=== PATIENT | male | born 1955 | race Caucasian/White ===

== ENCOUNTER 2024-07-29 03:25 | Inpatient (IN) | payer BC, MEDICARE ==
[2024-07-29 04:47] VITALS: BMI 29.0
[2024-07-29] MEDS ORDERED: Ondansetron PF 4 MG/2 ML Vial IVP PRN (06:08)
[2024-07-29] MEDS ORDERED: Acetaminophen 325 MG TAB PO PRN (06:08)
[2024-07-29] MEDS ORDERED: Nitroglycerin 0.4 MG TAB (25 Tab Bottle) SL PRN (06:08)
[2024-07-29 06:48] LABS: #Basophils 0.04 10x3/uL (0.0-0.2); %Basophils 0.7 % (0.0-1.0); %Lymphocytes 40.4 % (21.0-51.0); %Monocytes 10.7 % (0.0-10.0); %Neutrophils 45.8 % (42.0-75.0); Hematocrit 39.9 % (42.0-52.0); Hemoglobin 13.1 g/dL (14.0-18.0); Mean Corpuscular HGB CONC 32.8 g/dL (32.0-36.0); Mean Corpuscular Hemoglobin 29.1 pg (27.0-31.0); Mean Corpuscular Volume 88.7 fL (78.0-98.0); Platelet Count 193 10x3/uL (130-400); RBC Distribution Width 13.2 % (11.5-14.5)
[2024-07-29 07:08] LABS: Anion Gap 14 mmol/L (10-20); BUN (Urea Nitrogen) 16 mg/dL (8.4-25.7); Calc. Creatinine Clearance 97 mL/min (70-130); Calcium 8.5 mg/dL (7.8-10.44); Carbon Dioxide 25 mmol/L (23-31); Chloride 106 mmol/L (98-107); Cholesterol 167 mg/dl (< 200 Desired); Estimated GFR 95; Glucose 93 mg/dL (80-115); HDL Cholesterol 28 mg/dL (>60 Neg Risk); LDL Cholesterol, Calculated 88 mg/dL; Potassium 3.8 mmol/L (3.5-5.1); Sodium 141 mmol/L (136-145); Triglycerides 257 mg/dL (Less than 150)
[2024-07-29 07:13] LABS: Troponin I Less than 0.010 ng/mL (< 0.028)
[2024-07-29] MEDS: hydrOXYzine 10 MG TAB PO SCH (09:36)
[2024-07-29] MEDS: Loratadine 10 MG TAB PO SCH (09:36)
[2024-07-29] MEDS: Pantoprazole DR 40 MG TAB PO SCH (09:36)
[2024-07-29] MEDS: Cyanocobalamin (Vitamin B-12) 1,000 MCG TAB PO SCH (09:36)
[2024-07-29] MEDS: Aspirin Chewable 81 MG TAB PO SCH (09:37)
[2024-07-29] MEDS: Hydrochlorothiazide 25 MG TAB PO SCH (09:37)
[2024-07-29] MEDS: Cholecalciferol 1,000 UNITS (25 MCG) TAB PO SCH (09:37)
[2024-07-29 11:05] LABS: Troponin I Less than 0.010 ng/mL (< 0.028)
[2024-07-29] MEDS: Atorvastatin Calcium 10 MG TAB PO SCH (20:56)
[2024-07-29] MEDS: Lisinopril 10 MG TAB PO SCH (20:56)
[2024-07-30 04:02] LABS: #Basophils 0.05 10x3/uL (0.0-0.2); %Basophils 0.9 % (0.0-1.0); %Eosinophils 1.9 % (0.0-10.0); %Monocytes 10.5 % (0.0-10.0); %Neutrophils 43.4 % (42.0-75.0); Hematocrit 41.5 % (42.0-52.0); Hemoglobin 13.6 g/dL (14.0-18.0); Mean Corpuscular HGB CONC 32.8 g/dL (32.0-36.0); Mean Corpuscular Hemoglobin 29.1 pg (27.0-31.0); Mean Corpuscular Volume 88.9 fL (78.0-98.0); Mean Platelet Volume 10.2 fL (7.4-10.4); Platelet Count 217 10x3/uL (130-400); RBC Distribution Width 13.4 % (11.5-14.5); Red Blood Cell (RBC) Count 4.67 mill/uL (4.70-6.10)
[2024-07-30 04:26] LABS: Anion Gap 14 mmol/L (10-20); BUN (Urea Nitrogen) 13 mg/dL (8.4-25.7); Calc. Creatinine Clearance 103 mL/min (70-130); Calcium 8.7 mg/dL (7.8-10.44); Carbon Dioxide 25 mmol/L (23-31); Chloride 105 mmol/L (98-107); Estimated GFR 97; Glucose 92 mg/dL (80-115); Potassium 3.5 mmol/L (3.5-5.1); Sodium 140 mmol/L (136-145)
[2024-07-30] MEDS ORDERED: Regadenoson 0.4 MG/5 ML SYRINGE ONE (08:52)
[2024-07-30] MEDS: Amlodipine 5 MG TAB PO SCH ×2 (19:13→19:32)
[2024-07-30] MEDS: Atorvastatin Calcium 20 MG TAB PO SCH (21:05)
[2024-07-30] MEDS: Lisinopril 10 MG TAB PO SCH (21:05)
[2024-07-31 04:37] LABS: #Basophils 0.04 10x3/uL (0.0-0.2); %Basophils 0.7 % (0.0-1.0); %Eosinophils 1.8 % (0.0-10.0); %Lymphocytes 41.5 % (21.0-51.0); %Monocytes 11.3 % (0.0-10.0); %Neutrophils 44.4 % (42.0-75.0); Hematocrit 40.3 % (42.0-52.0); Hemoglobin 13.5 g/dL (14.0-18.0); Mean Corpuscular HGB CONC 33.5 g/dL (32.0-36.0); Mean Corpuscular Hemoglobin 29.7 pg (27.0-31.0); Mean Corpuscular Volume 88.8 fL (78.0-98.0); Mean Platelet Volume 9.9 fL (7.4-10.4); Platelet Count 205 10x3/uL (130-400); RBC Distribution Width 13.1 % (11.5-14.5); Red Blood Cell (RBC) Count 4.54 mill/uL (4.70-6.10)
[2024-07-31 04:56] LABS: Anion Gap 12 mmol/L (10-20); BUN (Urea Nitrogen) 17 mg/dL (8.4-25.7); Calc. Creatinine Clearance 97 mL/min (70-130); Carbon Dioxide 24 mmol/L (23-31); Chloride 105 mmol/L (98-107); Estimated GFR 95; Glucose 123 mg/dL (80-115); Potassium 3.3 mmol/L (3.5-5.1); Sodium 138 mmol/L (136-145)
[2024-07-31] MEDS: Amlodipine 5 MG TAB PO SCH (09:42)
[2024-07-31] MEDS: Potassium Chloride 20 MEQ TAB PO SCH (09:43)
[2024-07-31 12:36] VITALS: BP 145/79; TEMP 97.7
[2024-08-01] MEDS ORDERED: FLU (Fluad Triv) TS24-25 (65UP)/MF59C/PF 45 MCG/0.5 ML Syringe IM ONE (09:00)
== END 2024-07-31 12:39 | disposition home or self-care (01) | DRG 311 ==
LOC: 2NO 03:29 → OBSVTOIN 07-31 10:36
PROVIDERS: ADMIT Internal Medicine; ATTEND Internal Medicine
DX: I20.9 Angina pectoris, unspecified (principal); I10 Essential (primary) hypertension; E78.5 Hyperlipidemia, unspecified; K21.9 Gastro-esophageal reflux disease without esophagitis; F41.9 Anxiety disorder, unspecified; R00.1 Bradycardia, unspecified; R94.39 Abnormal result of other cardiovascular function study; E78.1 Pure hyperglyceridemia; E87.6 Hypokalemia; Z79.82 Long term (current) use of aspirin; Z79.899 Other long term (current) drug therapy; Z68.29 Body mass index [BMI] 29.0-29.9, adult
CPT/HCPCS: 36415; 36416; 78452; 80048; 80061; 83036; 84484; 85025; 93017; A9502; G0378; J2785

== ENCOUNTER 2024-08-01 21:39 | Emergency (ER) | payer BC, MEDICARE ==
[2024-08-01 22:30] LABS: #Basophils 0.07 10x3/uL (0.0-0.2); %Basophils 1.1 % (0.0-1.0); %Eosinophils 1.4 % (0.0-10.0); %Lymphocytes 36.4 % (21.0-51.0); %Monocytes 8.6 % (0.0-10.0); %Neutrophils 52.2 % (42.0-75.0); Hematocrit 42.3 % (42.0-52.0); Hemoglobin 13.9 g/dL (14.0-18.0); Mean Corpuscular HGB CONC 32.9 g/dL (32.0-36.0); Mean Corpuscular Hemoglobin 29.3 pg (27.0-31.0); Mean Corpuscular Volume 89.1 fL (78.0-98.0); Mean Platelet Volume 10.1 fL (7.4-10.4); Platelet Count 234 10x3/uL (130-400); Red Blood Cell (RBC) Count 4.75 mill/uL (4.70-6.10)
[2024-08-01 22:41] LABS: ALT (SGPT) 17 U/L (8-55); AST (SGOT) 17 U/L (5-34); Alkaline Phosphatase 63 U/L (40-110); Anion Gap 14 mmol/L (10-20); BUN (Urea Nitrogen) 11 mg/dL (8.4-25.7); Bilirubin, Total 0.4 mg/dL (0.2-1.2); Calc. Creatinine Clearance 0 mL/min (70-130); Calcium 9.2 mg/dL (7.8-10.44); Carbon Dioxide 25 mmol/L (23-31); Chloride 106 mmol/L (98-107); Estimated GFR 96; Globulin 3.2 g/dL (2.4-3.5); Glucose 102 mg/dL (80-115); Lipase 21 U/L (8-78); Magnesium 2.3 mg/dL (1.6-2.6); Potassium 3.5 mmol/L (3.5-5.1); Protein, Total 7.2 g/dL (5.8-8.1); Sodium 141 mmol/L (136-145)
[2024-08-01 22:47] LABS: Troponin I Less than 0.010 ng/mL (< 0.028)
== END 2024-08-01 23:22 | disposition home or self-care (01) ==
LOC: ERS 21:39
DX: R07.89 Other chest pain (principal); I10 Essential (primary) hypertension
CPT/HCPCS: 36415; 71045; 80053; 83690; 83735; 83880; 84484; 85025; 93005; 94760

== ENCOUNTER 2024-08-05 06:04 | Day surgery (SDC) | payer BC ==
[2024-08-04 10:16] VITALS: BMI 29.1
[2024-08-05] MEDS ORDERED: Heparin 10,000 UNITS/ 10 ML VIAL ONE (07:55)
[2024-08-05] MEDS ORDERED: Verapamil 5 MG/2 ML VIAL ONE (07:55)
[2024-08-05] MEDS ORDERED: Adenosine 6 mg (2 mL) VIAL ONE (07:55)
[2024-08-05] MEDS ORDERED: Nitroglycerin 50 MG/250 ML BOT 0 ML ONE (07:56)
[2024-08-05] MEDS ORDERED: fentaNYL 50 mcg/mL 1 mL Vial ONE (08:35)
[2024-08-05] MEDS ORDERED: Midazolam HCl 2 mg/2 ml Vial ONE (08:36)
[2024-08-05] MEDS ORDERED: Iopamidol 370 76% 100 ML VIAL ONE (10:22)
== END 2024-08-05 13:53 | disposition home or self-care (01) ==
LOC: CCL 06:04
PROVIDERS: ATTEND Internal Medicine Cardiovascular Disease
PROC: 4A023N7 Measurement of Cardiac Sampling and Pressure, Left Heart, Percutaneous Approach (ICD-10-PCS; principal; 2024-08-05)
DX: R07.89 Other chest pain (principal); I10 Essential (primary) hypertension; E78.5 Hyperlipidemia, unspecified; K21.9 Gastro-esophageal reflux disease without esophagitis
CPT/HCPCS: 93458; 99152; 99153; C1769; C1887; C1894; J0153; J1644; J2250; J3010; Q9967